=== PATIENT | male | born 1955 | race Caucasian/White ===

== ENCOUNTER 2021-05-05 09:45 | Outpatient (CLI) | payer MEDICARE, SELFPAY ==
[2021-05-05 18:45] LABS: Hematocrit 44.8 % (42.0-52.0); Hemoglobin 14.6 g/dL (14.0-18.0); Mean Corpuscular HGB Conc 32.6 g/dl (32-36); Mean Corpuscular Hemoglobin 29.3 pg (26-34); Mean Corpuscular Volume 89.8 fl (80-100); Mean Platelet Volume 9.9 fl (7.4-10.4); Platelet Count Result 229 k/mm3 (150-375); Red Blood Count 4.99 M/mm3 (4.6-6.20); Red Cell Distribution Width 14.2 % (11.5-14.5); White Blood Count 4.8 K/mm3 (4.5-10.0)
[2021-05-05 19:12] LABS: Alanine Aminotransferase 17 U/L (4-50); Albumin Level 4.1 g/dL (3.5-5.1); Alkaline Phosphatase 73 U/L (38-126); Anion Gap 4 mmol/L (8-16); Aspartate Amino Transferase 18 U/L (17-59); Bilirubin,Total 0.6 mg/dL (0.2-1.3); Blood Urea Nitrogen 15 mg/dL (9-20); Calcium 9.4 mg/dL (8.4-10.2); Carbon Dioxide 30 mmol/L (22-30); Chloride 104 mmol/L (98-107); Cholesterol 182 mg/dL (0-200); Estimated Glomerular Filt Rate > 60; Glucose 103 mg/dL (65-110); HDL Direct 66 mg/dL; Potassium 4.5 mmol/L (3.4-5.0); Sodium 138 mmol/L (137-145); Triglycerides 51 mg/dL (<150)
[2021-05-05 19:22] LABS: Vitamin D 25 Hydroxy 40.4 ng/mL
[2021-05-05 19:23] LABS: LDL Cholesterol Direct 103 mg/dL
[2021-05-05 19:25] LABS: Hemoglobin A1C 5.7 % (<5.7)
[2021-05-05 19:40] LABS: Prostate Specific Antigen 1.1 ng/mL (< OR = 4.0)
== END 2021-05-05 09:46 | disposition home or self-care (01) ==
PROVIDERS: PCP Family Medicine; Visit Provider Family Medicine
DX: Z12.5 Encounter for screening for malignant neoplasm of prostate (principal); N40.0 Benign prostatic hyperplasia without lower urinary tract symptoms; D49.7 Neoplasm of unspecified behavior of endocrine glands and other parts of nervous system; R79.89 Other specified abnormal findings of blood chemistry; Z00.00 Encounter for general adult medical examination without abnormal findings; E55.9 Vitamin D deficiency, unspecified
CPT/HCPCS: 36415; 80053; 80061; 82306; 83036; 84153; 85027; G0103

== ENCOUNTER 2021-06-17 07:48 | Outpatient (CLI) | payer MEDICARE, SELFPAY ==
--- NOTE | ~2021-06-17 | XR_ITS ---
XR foot RT min 3V DATE: 06/17/2021 08:08 INDICATION: Right foot injury, pain at fourth digit TECHNIQUE: 4 views of right foot. Lateral view of fourth digit. COMPARISON: None FINDINGS: There is slight plantar calcaneal enthesopathy. There is severe osteoarthritis including joint space narrowing and prominent spurring at the first me tatarsophalangeal joint. No fracture or dislocation, periosteal reaction or bone destruction is detected. IMPRESSION: Prominent osteoarthritis at first metatarsophalangeal joint No fracture or dislocation is detected Slight plantar calcaneal enthesopathy Reviewed, dictated and finalized at location B. LASTER
== END 2021-06-17 07:49 | disposition home or self-care (01) ==
LOC: ANHBWCIMG 07:50
PROVIDERS: PCP Family Medicine; Visit Provider Family Medicine
DX: M19.071 Primary osteoarthritis, right ankle and foot (principal)
CPT/HCPCS: 73630

== ENCOUNTER 2021-11-03 09:42 | Outpatient (CLI) | payer MEDICARE, SELFPAY ==
[2021-11-04 09:58] LABS: Hematocrit 47.1 % (42.0-52.0); Hemoglobin 14.3 g/dL (14.0-18.0); Mean Corpuscular HGB Conc 30.4 g/dl (32-36); Mean Corpuscular Hemoglobin 29.4 pg (26-34); Mean Corpuscular Volume 96.7 fl (80-100); Mean Platelet Volume 9.8 fl (7.4-10.4); Platelet Count Result 234 k/mm3 (150-375); Red Blood Count 4.87 M/mm3 (4.6-6.20); Red Cell Distribution Width 14.3 % (11.5-14.5); White Blood Count 5.3 K/mm3 (4.5-10.0)
[2021-11-04 10:11] LABS: Alanine Aminotransferase 16 U/L (6-50); Albumin Level 4.1 g/dL (3.5-5.1); Alkaline Phosphatase 76 U/L (38-126); Anion Gap 4 mmol/L (8-16); Aspartate Amino Transferase 18 U/L (17-59); Bilirubin,Total 0.8 mg/dL (0.2-1.3); Blood Urea Nitrogen 19 mg/dL (9-20); Calcium 9.3 mg/dL (8.4-10.2); Carbon Dioxide 28 mmol/L (22-30); Chloride 105 mmol/L (98-107); Cholesterol 194 mg/dL (0-200); Estimated Glomerular Filt Rate > 60; Glucose 96 mg/dL (65-110); HDL Direct 68 mg/dL; Potassium 4.4 mmol/L (3.4-5.0); Sodium 137 mmol/L (137-145); Triglycerides 38 mg/dL (<150)
[2021-11-04 10:22] LABS: LDL Cholesterol Direct 105 mg/dL
[2021-11-04 10:25] LABS: Vitamin D 25 Hydroxy 39.3 ng/mL
[2021-11-04 15:52] LABS: Hemoglobin A1C 5.6 % (<5.7)
== END 2021-11-03 09:43 | disposition home or self-care (01) ==
PROVIDERS: PCP Family Medicine; Visit Provider Family Medicine
DX: R73.03 Prediabetes (principal); D49.7 Neoplasm of unspecified behavior of endocrine glands and other parts of nervous system; Z82.49 Family history of ischemic heart disease and other diseases of the circulatory system; R79.89 Other specified abnormal findings of blood chemistry; E55.9 Vitamin D deficiency, unspecified
CPT/HCPCS: 36415; 80053; 80061; 82306; 83036; 85027

== ENCOUNTER 2022-05-09 09:47 | Outpatient (CLI) | payer MEDICARE, SELFPAY ==
[2022-05-09 18:43] LABS: Basophils Percent Auto 0.6 % (0.2-1.2); Eosinophils Absolute Auto 0.1 K/mm3 (0-0.3); Eosinophils Percent Auto 1.3 % (0-4.4); Hematocrit 47.6 % (42.0-52.0); Hemoglobin 15.5 g/dL (14.0-18.0); Immature Granulocyte Absolute 0.01 K/mm3 (0.00-0.031); Immature Granulocyte Percent A 0.2 % (0-0.5); Lymphocytes Absolute Auto 1.58 K/mm3 (0.9-3.2); Lymphocytes Percent Auto 29.2 % (18.3-44.2); Mean Corpuscular HGB Conc 32.6 g/dl (32-36); Mean Corpuscular Hemoglobin 28.5 pg (26-34); Mean Corpuscular Volume 87.7 fl (80-100); Mean Platelet Volume 9.8 fl (7.4-10.4); Monocytes Absolute Auto 0.4 K/mm3 (0.1-0.6); Neutrophils Absolute Auto 3.3 K/mm3 (1.3-6.7); Neutrophils Percent Auto 61.7 % (45.5-73.1); Platelet Count Result 256 k/mm3 (150-375); Red Blood Count 5.43 M/mm3 (4.6-6.20); Red Cell Distribution Width 14.5 % (11.5-14.5); White Blood Count 5.4 K/mm3 (4.5-10.0)
[2022-05-09 18:50] LABS: Alanine Aminotransferase 19 U/L (6-50); Albumin Level 4.4 g/dL (3.5-5.1); Alkaline Phosphatase 84 U/L (38-126); Anion Gap 13 mmol/L (8-16); Aspartate Amino Transferase 37 U/L (17-59); Bilirubin,Total 0.8 mg/dL (0.2-1.3); Blood Urea Nitrogen 19 mg/dL (9-20); Calcium 9.2 mg/dL (8.4-10.2); Carbon Dioxide 28 mmol/L (22-30); Chloride 100 mmol/L (98-107); Estimated Glomerular Filt Rate > 60; Glucose 92 mg/dL (65-110); Potassium 4.1 mmol/L (3.4-5.0); Sodium 141 mmol/L (137-145)
[2022-05-09 18:52] LABS: Hemoglobin A1C 6.1 % (<5.7)
[2022-05-09 19:56] LABS: Prostate Specific Antigen 1.6 ng/mL (< OR = 4.0)
== END 2022-05-09 09:48 | disposition home or self-care (01) ==
PROVIDERS: PCP Family Medicine; Visit Provider Family Medicine
DX: R73.03 Prediabetes (principal); D49.7 Neoplasm of unspecified behavior of endocrine glands and other parts of nervous system; R79.89 Other specified abnormal findings of blood chemistry; E55.9 Vitamin D deficiency, unspecified; N40.0 Benign prostatic hyperplasia without lower urinary tract symptoms; N52.9 Male erectile dysfunction, unspecified; Z12.5 Encounter for screening for malignant neoplasm of prostate
CPT/HCPCS: 36415; 80053; 82306; 83036; 84153; 85025; G0103

== ENCOUNTER 2023-04-11 15:16 | Outpatient (CLI) | payer MEDICARE, SELFPAY ==
--- NOTE | ~2023-04-11 | XR_ITS ---
XR lumbar spine 2-3V DATE: 04/11/2023 15:27 INDICATION: Dorsalgia. TECHNIQUE: AP and lateral views COMPARISON: None FINDINGS: There is degenerative spurring but relative preservation of lumbar interspaces. Included lower thoracic and lumbar pedicles are intact. No fracture or spondylolisthesis or bone destruction is detected. The sacrum joints are intact. IMPRESSION: Mild degenerative spurring Reviewed, dictated and finalized at location A. IMPRESSION: Mild degenerative spurring
== END 2023-04-11 15:17 | disposition home or self-care (01) ==
LOC: ANHBWCIMG 15:18
PROVIDERS: PCP Family Medicine; Visit Provider Nurse Practitioner Adult Health
DX: M54.9 Dorsalgia, unspecified (principal); M25.78 Osteophyte, vertebrae
CPT/HCPCS: 72100

== ENCOUNTER 2024-05-03 13:34 | Outpatient (CLI) | payer MEDICARE, SELFPAY ==
[2024-05-03 14:14] LABS: Anion Gap 4 mmol/L (4-12); Blood Urea Nitrogen 20 mg/dL (9-20); Calcium 9.6 mg/dL (8.4-10.2); Carbon Dioxide 29 mmol/L (22-30); Chloride 104 mmol/L (98-107); Estimated Glomerular Filt Rate > 60; Glucose 104 mg/dL (65-110); Potassium 4.5 mmol/L (3.4-5.0); Sodium 137 mmol/L (137-145)
== END 2024-05-03 13:35 | disposition home or self-care (01) ==
PROVIDERS: PCP Family Medicine; Visit Provider Family Medicine
DX: E87.5 Hyperkalemia (principal)
CPT/HCPCS: 36415; 80048

== ENCOUNTER 2024-09-27 08:16 | Outpatient (CLI) | payer MEDICARE, SELFPAY ==
--- OUTSIDE RECORDS SUMMARY | 2024-09-27 08:23 | XMS_ITS ---
Author Organization [facility] Address [address] [place], [place] [id number] Care Team Providers Care Health Information Specialist Name Role Phone AMPARO LOWRY Unavailable [phone] Horacio Farmer Unavailable Unavailable REASON FOR VISIT foot doing well Encounters Encounter Location Date Provider Diagnosis [facility] [place] [address] [place], [place] [id number] 05/02/2024 AMPARO LOWRY Plan Of Treatment No Information Progress Notes * JULIO CÉSAR BURGESS EDOB:1955 (68 yo M)Acc No.[id number]:05/02/2024 Patient: Steve JULIO CÉSAR العلي Provider: Thompson Lowry DPM :1955 A ge:68 Y S ex:Male Date:05/02/2024 Address:[address] [place] [address] [id number] Subjective: * Chief Complaints: * 1 . Foot doing well. * Medical History: Objective: * Vitals: Assessment: Plan: * Treatment: * Billing Information: * Visit Code: * Procedure Codes: * Electronic signature of AMPARO LOWRY DPM on 09/27/2024 at 08:23 AM CDT Sign off status: Pending * Provider: Thompson Lowry DPM Date: 07/02/2023 Generated for Xavier watson/Linda/eTransmitting on: 0 09/27/2024 08:23 AM CDT
--- OUTSIDE RECORDS SUMMARY | 2024-09-27 08:23 | XMS_ITS | Patient Health Record ---
Author Organization [facility] Address [address] [place], [place] [id number] Care Team Providers Care Manager Six Sigma Name Role Phone AMPARO FIELD Unavailable [phone] Horacio Farmer Unavailable Unavailable Allergies Allergen (clinical drug ingredient) Drug/Non Drug Allergy documented on EMR Reaction Allergy Type Onset Date Status codeine Codeine Unknown Drug Allergy 07/09/2021 active Reason For Referral No Information Medications Medication SIG (Take, Route, Frequency, Duration) Notes Start Date End Date Status Tamsulosin HCl 0.4 MG TAKE 1 CAPSULE BY MOUTH EVERY DAY Oral for 90 Days Activ e Vitamin D3 1.25 MG (95627 UT) TAKE 1 CAPSULE BY MOUTH WEEKLY Oral for 84 Days Active Lisinopril 10 MG TAKE 1 TABLET BY DEBI TH EVERY DAY Oral for 90 Days Activ e Lisinopril 10 MG Oral for 90 Days Active Immunizations Vaccine Route Administration Date Status Comme nts Pneumococcal polysaccharide PPV23 Unknown 04/18/2024 Re fused Influenza, high dose seasonal Unknown 04/18/2024 Refuse d Influenza, high dose seasonal Unknown 09/10/2024 Admini stered Social History Tobacco Use: Social History Observation Description Date Details (start date - stop date) Never Smoker NA - NA Tobacco Control (Standard) Question Answer Notes Tobacco use: Nonsmoker Vital Signs Height-cm 167.64 cm 04/18/2024 Weight-kg 71.21 kg 04/18/2024 Height 66.00 in 04/18/2024 Weight 157 lbs 04/18/2024 BMI 25.34 kg/m2 04/18/2024 Encounters Encounter Location Date Provider Diagnosis [facility] [place] [address] [place], [place] [id number] 04/18/2024 AMPARO FIELD 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 ; Metatarsalgia of right foot M77.41 and Pain in right foot M79.671 Assessments Encounter Date Diagnosis (ICD Code) Assessment Notes Treatment Notes Treatment Clinical Notes Section Notes 04/18/2024 Metatarsalgia of right foot (ICD-10 - M77.41) 04/18/2024 Neuroma of second interspace of right foot (ICD-10 - G57.61) 04/18/2024 Pain in right foot (ICD-10 - M79.671) 04/18/2024 Other Following skin prep, a total of 3 ccs of a 1-1-1 mix of 0.5% marcaine plain, Kenalog, and dexamethasone sodium phosphate was injected into the patients right third interspace Plan Of Treatment No Information Insurance Providers Payer Name Payer Address Payer Phone Subscriber Number Group Number Insured Name Patient Relationship to Insured Coverage Start Date Coverage End Date [employer] [address] JORDON KOEHLER [phone] [id number] JULIO CÉSAR BURGESS Self - patient is the insured Medical (General) History Surgical History Surgery Date(Month/Year) Hernia 1960 deviated septum repair 1973
--- OUTSIDE RECORDS SUMMARY | 2024-09-27 08:23 | XMS_ITS | Clinical Summary ---
Author Organization [facility] Address [address] [place] [address] Care Team Providers Care Smoking Tobacco Cutter Operator Name Role Phone Unavailable Primary Care Provider Unavailabl e Social History Tobacco Use Types Packs/Day Years Used Date Smoking Tobacco: Never Assessed Sex and Gender Information Value Date Recorded Sex Assigned at Not on file Legal Sex Male 6:03 PM CDT Gender Identity Not on file Sexual Orientation Not on file Plan of Treatment Health Maintenance Due Date Last Done Comments Colorectal Cancer Screening Colonoscopy (10 Years) 1955 Hepatitis C 11/07/1973 DTaP, Tdap and Td Vaccines ( 1 - Tdap) 11/07/1974 Zoster Vaccines (1 of 2) 11/07/2005 Pneumococcal Vaccine: 65+ Ye ars (1 of 1 - PCV) 11/07/2020 COVID-19 Vaccine ( - 2023-2 5 season) 2024 RSV Immunization or 60+ Years (1 - 1-dose 75+ series) 11/07/2030 Meningococcal B Vaccine Aged Out No l onger eligible based on patient's age to complete this topic Meningococcal Vaccine Aged Out No ajck zhen eligible based on patient's age to complete this topic RSV Immunizations Under 20 Months Aged Out No longer eligible based on patient's age to complete this topic
--- OUTSIDE RECORDS SUMMARY | 2024-09-27 08:23 | XMS_ITS ---
Author Organization [facility] Address [address] [place], [place] [phone] Care Team Providers Care Wind Tunnel Engineer Name Role Phone AMPARO LOWRY Unavailable [phone] Horacio Farmer Unavailable Unavailable Allergies Allergen (clinical drug ingredient) Drug/Non Drug Allergy documented on EMR Reaction Allergy Type Onset Date Status codeine Codeine Unknown Drug Allergy 07/09/2021 active REASON FOR VISIT injection Medications Medication SIG (Take, Route, Frequency, Duration) Notes Start Date End Date Status Tamsulosin HCl 0.4 MG TAKE 1 CAPSULE BY MOUTH EVERY DAY Oral for 90 Days Activ e Vitamin D3 1.25 MG (33359 UT) TAKE 1 CAPSULE BY MOUTH WEEKLY Oral for 84 Days Active Lisinopril 10 MG TAKE 1 TABLET BY DEBI TH EVERY DAY Oral for 90 Days Activ e Lisinopril 10 MG Oral for 90 Days Active Immunizations Vaccine Route Administration Date Status Comme nts Influenza, high dose seasonal Unknown 04/18/2024 Refuse d Pneumococcal polysaccharide PPV23 Unknown 04/18/2024 Re fused Social History Tobacco Use: Social History Observation Description Date Details (start date - stop date) Never Smoker NA - NA Tobacco Control (Standard) Question Answer Notes Tobacco use: Nonsmoker AUDIT-C (Standard) Question Answer Notes Did you have a drink containing alcohol in the p ast year? 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 ; Metatarsalgia of right foot M77.41 and Pain in right foot M79.671 Assessments Encounter Date Diagnosis (ICD Code) Assessment Notes Treatment Notes Treatment Clinical Notes Section Notes 04/18/2024 Neuroma of second interspace of right foot (ICD-10 - G57.61) 04/18/2024 Metatarsalgia of right foot (ICD-10 - M77.41) 04/18/2024 Pain in right foot (ICD-10 - M79.671) 04/18/2024 Other Following skin prep, a total of 3 ccs of a 1-1-1 mix of 0.5% marcaine plain, Kenalog, and dexamethasone sodium phosphate was injected into the patients right third interspace Plan Of Treatment Treatment Notes Assessment Notes Other Following skin prep, a total of 3 ccs of a 1-1-1 mix of 0.5% marcaine plain, Kenalog, and dexamethasone sodium phosphate was injected into the patients right third interspace Progress Notes * JULIO CÉSAR BURGESS EDOB:1955 (68 yo M)Acc No.[id number]:04/18/2024 Patient: JULIO CÉSAR AUGUSTE Provider: Thompson Lowry DPM :1955 A ge:68 Y S ex:Male Date:04/18/2024 Address:[address] [place], [place] [id number] Subjective: * Chief Complaints: * I njection * HPI: H [facility] right foot pain. Patient states he's had two injections, and they helped for a while. He is having pain again and was hoping to get another injection today. Patient states their problem is worse. MA: sea. * ROS: G eneral / Constitutional: Patient denies c hills, fever. E ndocrine: Patient denies e xcessive thirst, frequent urination. ? C ardiovascular: Patient denies s hortness of breath, chest pain. S kin: Patient denies m ole changes. * Medical History: * Surgical History: Tigist rendon 1961deviated septum repair 1973 * Hospitalization/Major Diagno stic Procedure: D enies Past Hospitalization * Family History: F ather: PRN - Father: :: Diabetes,,known absent . * Social History: T obacco Use: T obacco Control (Standard) T obacco use: N onsmoker M igrated Social History: M igrated Social History: History of tobacco use : , Smoking Status : Never used tobacco. D rug/Alcohol: A MOIZ-C (Standard) D id you have a drink containing alcohol in the past year? N o P oints 0 I nterpretation N egative * Medications: T akingLisinopril 10 MG Tablet TAKE 1 TABLET BY MOUTH EVERY DAY Oral Lisinopril 10 MG Tablet Oral Vitamin D3 1.25 MG (31347 UT) Capsule TAKE 1 CAPSULE BY MOUTH WEEKLY Oral Tamsulosin HCl 0.4 MG Capsule TAKE 1 CAPSULE BY MOUTH EVERY DAY Oral Medication List reviewed and reconciled with the patientTaking Lisinopril 10 MG Tablet TAKE 1 TABLET BY MOUTH EVERY DAY Oral Taking Lisinopril 10 MG Tablet Oral Taking Vitamin D3 1.25 MG (84604 UT) Capsule TAKE 1 CAPSULE BY MOUTH WEEKLY Oral Taking Tamsulosin HCl 0.4 MG Capsule TAKE 1 CAPSULE BY MOUTH EVERY DAY Oral Medication List reviewed and reconciled with the patient * Allergies: C odeine: Allergy - Onset Date 07/09/2021no[Allergies Verified] Objective: * Vitals: S hoe Size: 9.5, Wt:157lbs, Wt-k.21 kg, Ht: 66.00 in, Ht-cm: 167.64 cm, BMI:25.34Index, Body Surface Area: 1.82. * Examination: P hysical Examination: Gen: T he patient is awake, alert, well developed, well groomed and well nourished. They are in no apparent distress. . Musc: F oot structure is normal. No abnormalities noted. Muscle strength is 5/5 to all joints bilaterally. Pain on palpation of 3rd interspace right . Derm: S kin is warm and dry, with no rashes, good skin turgor and normal hair distribution. . Neuro: G rossly intact to light touch bilateral.. Vasc: D orsalis pedis and posterior tibial pulses 2+ bilaterally. No edema noted. Capillary fill time < 3 seconds to all digits. . Assessment: * Assessment: 1. N euroma of second interspace of right foot - G57.61 (Primary) 2 . M etatarsalgia of right foot - M77.41 3 . P ain in right foot - M79.671 ? Plan: * Treatment: * Immunizations: Influenza, high dose seasonal (Not administered - Refused: Patient decision) Pneumococcal polysaccharide PPV23 (Not administered - Refused: Patient decision) ???Immunization record has been reviewed and updated. * Procedure Codes: 6 4455 N BLOCK INJ, PLANTAR DIGIT, Modifiers: RT * Billing Information: * Visit Code: 58656 Office Visit, Est Pt., Level 3. Modifiers: 25 * Procedure Codes: 61402 N BLOCK INJ, PLANTAR DIGIT. Modifiers: RT * Sign off status: Completed true * Provider: Thompson Lowry DPM Date: Generated for Xavier watson/Linda/Kaitlynn on: 0 09/27/2024 08:22 AM CDT History and Physical Notes * HPI (History of Present Illness) Category Sub-Category Detail Notes Category Not es HPI Follow Up Visit Patient presents for follow-up visit for right foot pain. Patient states he's had two injections, and they helped for a while. He is having pain again and was hoping to get another injection today. Patient states their problem is worse. MA: sea Examination Category Sub-Category Detail Notes Category Not es Physical Examination Gen: The patient is awake, alert, well developed, well groomed and well nourished. They are in no apparent distress. Vasc: Dorsalis pedis and p osterior tibial pulses 2+ bilaterally. No edema noted. Capillary fill time < 3 seconds to all digits. Neuro: Grossly intact to li ght touch bilateral. Musc: Foot structure is no rmal. No abnormalities noted. Muscle strength is 5/5 to all joints bilaterally. Pain on palpation of 3rd interspace right Derm: Skin is warm and dry , with no rashes, good skin turgor and normal hair distribution.
--- OUTSIDE RECORDS SUMMARY | 2024-09-27 08:24 | XMS_ITS ---
Author Organization [facility] Address [address] [place], [place] [address] Care Team Providers Care Sales Service Executive Name Role Phone AMPARO LOWRY Unavailable [phone] Horacio Farmer Unavailable Unavailable REASON FOR VISIT 1st Neuroma injection Vital Signs Weight 157 lbs 05/05/2023 Weight-kg 71.21 kg 05/05/2023 Height 66.00 in 05/05/2023 Height-cm 167.64 cm 05/05/2023 BMI 25.34 kg/m2 05/05/2023 Encounters Encounter Location Date Provider Diagnosis [facility] [place] [address] [place], [place] [id number] 05/05/2023 AMPARO LOWRY 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 and Pain in right foot M79.671 Assessments Encounter Date Diagnosis (ICD Code) Assessment Notes Treatment Notes Treatment Clinical Notes Section Notes 05/05/2023 Neuroma of second interspace of right foot (ICD-10 - G57.61) He did not wish to pursue any treatment at this time 05/05/2023 Pain in right foot (ICD-10 - M79.671) Plan Of Treatment Treatment Notes Assessment Notes Neuroma of second interspace of right fo ot He did not wish to pursue any treatment at this time Progress Notes * JULIO CÉSAR BURGESS EDOB:1955 (67 yo M)Acc No.[id number]:05/05/2023 Patient: Steve JULIO CÉSAR العلي Provider: Thompson Lowry DPM :1955 A ge:67 Y S ex:Male Date:05/05/2023 Address:[place], [id number] Subjective: * Chief Complaints: * 1 . 1st Neuroma injection. * HPI: H PI: Follow Up Visit P jaqueline presents for follow up visit for a neuroma in his right foot. He states his pain was at a 9, after getting an injection last visit, his pain is at a 2. He almost cancelled his appointment because his foot is feeling so much better. MA: sea. * ROS: G eneral / Constitutional: Patient denies c hills, fever. E ndocrine: Patient denies e xcessive thirst, frequent urination. ? C ardiovascular: Patient denies s hortness of breath, chest pain. S kin: Patient denies m ole changes. * Medical History: * Family History: F ather: PRN - Father: :: Diabetes,,known absent . * Social History: M igrated Social History: M igrated Social History: History of tobacco use : , Smoking Status : Never used tobacco. Objective: * Vitals: W t:157lbs, Wt-k.21 kg, Ht: 66.00 in, Ht-cm: 167.64 [...] right foot - G57.61 (Primary) 2 . P ain in right foot - M79.671 Plan: * Treatment: * Billing Information: * Visit Code: 74264 Office Visit, Est Pt., Level 3. * Procedure Codes: * ELAIN ENAMEL LABORER Sign off status: Completed true * Provider: Thompson Lowry DPM Date: 07/05/2022 Generated for Xavier watson/Linda/Kaitlynn on: 0 09/27/2024 08:23 AM CDT History and Physical Notes * HPI (History of Present Illness) Category Sub-Category Detail Notes Category Not es HPI Follow Up Visit Patient presents for follow up visit for a neuroma in his right foot. He states his pain was at a 9, after getting an injection last visit, his pain is at a 2. He almost cancelled his appointment because his foot is feeling so much better. MA: sea Examination Category Sub-Category Detail Notes [...]
[2024-09-27 08:41] LABS: Basophils Percent Auto 0.6 % (0.2-1.2); Eosinophils Absolute Auto 0.1 K/mm3 (0-0.3); Eosinophils Percent Auto 1.2 % (0-4.4); Hematocrit 42.6 % (42.0-52.0); Hemoglobin 14.2 g/dL (14.0-18.0); Immature Granulocyte Absolute 0.01 K/mm3 (0.00-0.031); Immature Granulocyte Percent A 0.2 % (0-0.5); Lymphocytes Absolute Auto 1.71 K/mm3 (0.9-3.2); Lymphocytes Percent Auto 34.1 % (18.3-44.2); Mean Corpuscular HGB Conc 33.3 g/dl (32-36); Mean Corpuscular Volume 87.1 fl (80-100); Mean Platelet Volume 9.5 fl (7.4-10.4); Monocytes Absolute Auto 0.4 K/mm3 (0.1-0.6); Monocytes Percent Auto 8.4 % (2.6-8.5); Neutrophils Absolute Auto 2.8 K/mm3 (1.3-6.7); Neutrophils Percent Auto 55.5 % (45.5-73.1); Platelet Count Result 224 k/mm3 (150-375); Red Blood Count 4.89 M/mm3 (4.6-6.20); Red Cell Distribution Width 13.1 % (11.5-14.5)
[2024-09-27 08:56] LABS: Alanine Aminotransferase 16 U/L (6-50); Albumin Level 4.1 g/dL (3.5-5.1); Alkaline Phosphatase 73 U/L (38-126); Anion Gap 5 mmol/L (4-12); Aspartate Amino Transferase 16 U/L (17-59); Bilirubin,Total 0.7 mg/dL (0.2-1.3); Blood Urea Nitrogen 16 mg/dL (9-20); Calcium 9.3 mg/dL (8.4-10.2); Carbon Dioxide 30 mmol/L (22-30); Chloride 104 mmol/L (98-107); Cholesterol 164 mg/dL (0-200); Estimated Glomerular Filt Rate > 60; Glucose 108 mg/dL (65-110); HDL Direct 61 mg/dL; Potassium 4.2 mmol/L (3.4-5.0); Sodium 139 mmol/L (137-145); Triglycerides 60 mg/dL (<150)
[2024-09-27 09:07] LABS: LDL Cholesterol Direct 84 mg/dL
[2024-09-29 05:33] LABS: CRP, High Sensitivity 0.3 mg/L
[2024-10-02 14:23] LABS: Apolipoprotein B 81 mg/dL
[2024-10-03 11:18] LABS: Testosterone Free 88.2 pg/mL (35.0-155.0); Testosterone Total 558 ng/dL (250-1100)
== END 2024-09-27 08:17 | disposition home or self-care (01) ==
PROVIDERS: PCP Family Medicine; Visit Provider Family Medicine
DX: I10 Essential (primary) hypertension (principal); R73.03 Prediabetes; R79.89 Other specified abnormal findings of blood chemistry; N52.9 Male erectile dysfunction, unspecified; Z79.899 Other long term (current) drug therapy
CPT/HCPCS: 36415; 80053; 80061; 82172; 82306; 82607; 83036; 84402; 84403; 85025; 86141

== ENCOUNTER 2025-04-03 08:52 | Outpatient (CLI) | payer MEDICARE, SELFPAY ==
[2025-04-03 09:51] LABS: Hematocrit 40.7 % (42.0-52.0); Hemoglobin 13.6 g/dL (14.0-18.0); Immature Granulocyte Percent A 0.2 % (0-0.5); Lymphocytes Absolute Auto 1.89 K/mm3 (0.9-3.2); Mean Corpuscular HGB Conc 33.4 g/dl (32-36); Mean Corpuscular Hemoglobin 29.7 pg (26-34); Mean Corpuscular Volume 88.9 fl (80-100); Nucleated Red Blood Cells Absolute Auto 0.000 K/mm3 (0.0-0.012); Nucleated Red Blood Cells Perc 0.0 % (0.0-0.2); Platelet Count Result 248 k/mm3 (150-375); Red Blood Count 4.58 M/mm3 (4.6-6.20); White Blood Count 6.0 K/mm3 (4.5-10.0)
[2025-04-03 10:29] LABS: Alanine Aminotransferase 14 U/L (6-50); Albumin Level 4.0 g/dL (3.5-5.1); Alkaline Phosphatase 82 U/L (38-126); Anion Gap 4 mmol/L (4-12); Aspartate Amino Transferase 18 U/L (17-59); Bilirubin,Total 0.5 mg/dL (0.2-1.3); Blood Urea Nitrogen 19 mg/dL (9-20); Calcium 9.1 mg/dL (8.4-10.2); Carbon Dioxide 29 mmol/L (22-30); Chloride 104 mmol/L (98-107); Cholesterol 179 mg/dL (0-200); Estimated Glomerular Filt Rate > 60; Glucose 108 mg/dL (65-110); HDL Direct 57 mg/dL; Potassium 4.0 mmol/L (3.4-5.0); Sodium 137 mmol/L (137-145); Total Protein 7.0 g/dL (6.3-8.2); Triglycerides 56 mg/dL (<150)
[2025-04-03 11:02] LABS: Hemoglobin A1C 5.4 % (<5.7)
[2025-04-03 11:23] LABS: Vitamin B12 489.0 pg/mL (239-931)
== END 2025-04-03 08:53 | disposition home or self-care (01) ==
LOC: ANHLAB 08:54
PROVIDERS: PCP Family Medicine; Visit Provider Family Medicine
DX: R73.03 Prediabetes (principal); R79.89 Other specified abnormal findings of blood chemistry; I10 Essential (primary) hypertension; N40.0 Benign prostatic hyperplasia without lower urinary tract symptoms; D49.2 Neoplasm of unspecified behavior of bone, soft tissue, and skin; Z79.899 Other long term (current) drug therapy
CPT/HCPCS: 36415; 80053; 80061; 82172; 82306; 82607; 83036; 85025

== ENCOUNTER 2025-04-03 09:13 | Outpatient (CLI) | payer MEDICARE, SELFPAY ==
--- NOTE | ~2025-04-03 | XR_ITS ---
EXAMINATION: XR shoulder LT min 2V, 04/03/2025 9:18 CDT HISTORY: M25.519 - Pain in unspecified shoulder COMPARISON: No comparisons available. Findings: No acute fracture or malalignment. No significant degenerative changes. Soft tissues unremarkable. Impression: No acute fracture or malalignment. Reviewed, dictated and finalized at location P. Impression: No acute fracture or malalignment.
--- NOTE | ~2025-04-03 | XR_ITS ---
EXAMINATION: XR shoulder RT min 2V, 04/03/2025 9:18 CDT HISTORY: M25.519 - Pain in unspecified shoulder COMPARISON: No comparisons available. Findings: No acute fracture or malalignment. No significant degenerative changes. Soft tissues unremarkable. Impression: No acute fracture or malalignment. Reviewed, dictated and finalized at location P. Impression: No acute fracture or malalignment.
== END 2025-04-03 09:14 | disposition home or self-care (01) ==
PROVIDERS: PCP Family Medicine; Visit Provider Family Medicine
DX: M25.519 Pain in unspecified shoulder (principal)
CPT/HCPCS: 73030